=== PATIENT | female | born 1950 | race African-American/Black ===

== ENCOUNTER 2022-09-13 11:38 | Day surgery (SDC) | payer MEDICARE ==
[2022-09-13] MEDS ORDERED: NA CHLORIDE 0.9% 500 ML ONE (12:02)
[2022-09-13] MEDS ORDERED: BSS OPTHALMIC SOL 15 ML OPTH ONE (12:04)
[2022-09-13] MEDS ORDERED: POVIDONE-IODINE 5% EYE DROPS ONE (12:05)
[2022-09-13] MEDS ORDERED: LIDOCAINE HCL/PF 3.5% OPTH GEL ONE (12:06)
[2022-09-13 12:22] VITALS: TEMP 97.4
[2022-09-13] MEDS: PHENYLEPHRINE 10% OPTH 5ML ONE ×3 (13:12→13:22)
[2022-09-13] MEDS: CYCLOPENTOLATE 1% OPTH 2 ML ONE ×3 (13:12→13:22)
[2022-09-13] MEDS: LIDOCAINE 1% MPF 2 ML AMPULE ONE ×2 (13:20→14:09)
[2022-09-13] MEDS: BALANCED SALT IRRIG PLAIN 500 ML IRR ONE ×2 (13:21→14:09)
[2022-09-13] MEDS: EPINEPHRINE/PF 1 MG/ML AMP ONE ×2 (13:21→14:09)
[2022-09-13] MEDS: DUOVISC 1 KIT OPTH ONE ×2 (13:22→14:16)
[2022-09-13] MEDS: MOXIFLOXACIN HCL 10 DROPS/ML **OR USE OPTH ONE ×2 (13:23→14:17)
[2022-09-13] MEDS ORDERED: TRYPAN BLUE 0.5 ML SYR OPTH ONE (13:52)
[2022-09-13] MEDS ORDERED: FENTANYL CITR 100 MCG/2 ML ONE (13:58)
[2022-09-13] MEDS ORDERED: MIDAZOLAM HCL 2 MG/2 ML INJ ONE (13:58)
[2022-09-13 15:19] VITALS: O2SAT 99
[2022-09-13 15:21] VITALS: BP 116/68
--- NOTE | 2022-09-13 22:12 | OP ---
Date of Procedure: 09/13/2022 Surgeon: Laurie Mitchell MD Anesthesiologist: Thanh Vieyra CRNA Preoperative Diagnosis: Nuclear sclerotic cataract, left eye. Operation Performed: Phacoemulsification with intraocular lens implant, left eye. Anesthesia: Topical anesthesia. Anesthesia for cataract surgery. Complications: None. Description Of Procedure: In the operating room the patient was prepped and draped in the usual sterile fashion for ophthalmic surgery. A lid speculum was placed in the left eye. Two paracentesis sites were made superiorly and inferiorly in the limbal cornea. Viscoat was placed in the anterior chamber and a keratome was used to enter the anterior chamber. Provisc was placed in the anterior chamber and a 360 degree capsulotomy was performed with utrata forceps. The lens was hydrodissected with BSS and rotated freely. The lens was removed with a chop technique. 1.89 phaco CDE was used to remove the lens. Residual cortex was removed with the irrigation and aspiration. Provisc was placed in the capsular bag. A DCB00, +22.5 lens was placed in the capsular bag without complications. Irrigation and aspiration were used to remove residual viscoelastic. The paracentesis sites were hydrated with BSS. The wound and paracentesis sites were inspected and found to be watertight. Vigamox 0.07 cc was placed intracamerally at the end of the procedure. The eye was patched with a clear shield. The patient was returned to day surgery in good condition. Comments: Discharge Instructions: Ms. Sykes was discharged to home in good condition and is to follow up with Dr. Mitchell in the morning. DEVYN/OFELIA Voice ID: [id number] Report ID: [id number] BRENT
== END 2022-09-13 15:10 | disposition home or self-care (01) ==
LOC: OR 11:38
PROVIDERS: ADMIT Ophthalmology Retina Specialist; ATTEND Ophthalmology Retina Specialist
PROC: 08RK3JZ Replacement of Left Lens with Synthetic Substitute, Percutaneous Approach (ICD-10-PCS; principal; 2022-09-13 13:30)
DX: H25.12 Age-related nuclear cataract, left eye (principal); H25.012 Cortical age-related cataract, left eye
CPT/HCPCS: 66984; J0171; J2250; J3010; J7040